=== PATIENT | female | born 1995 | race Caucasian/White ===

== ENCOUNTER 2017-06-03 19:02 | Emergency (ER) | payer MEDICAID, OTHER ==
[~2017-06-03] VITALS: Ht 162.6 cm; Wt 80.0 kg
[2017-06-03 19:06] VITALS: BP 120/84
[2017-06-03] MEDS ORDERED: IBUPROFEN 600MG TABLET PO STA (19:58)
== END 2017-06-03 22:00 | disposition left against medical advice (07) ==
LOC: ER 21:25
DX: R07.9 Chest pain, unspecified (principal)
CPT/HCPCS: 93005; 99283

== ENCOUNTER 2018-04-18 19:02 | Emergency (ER) | payer OTHER ==
[~2018-04-18] VITALS: Ht 160 cm; Wt 83.0 kg
[2018-04-18 22:38] VITALS: BP 129/65
== END 2018-04-18 23:32 | disposition home or self-care (01) ==
LOC: ER 20:23
DX: M79.662 Pain in left lower leg (principal); M79.661 Pain in right lower leg; M79.89 Other specified soft tissue disorders
CPT/HCPCS: 93970; 99284